=== PATIENT | male | born 1950 | race Caucasian/White ===

== ENCOUNTER 2017-09-09 11:34 | Inpatient (IN) | payer MEDICARE, BC ==
[~2017-09-09] VITALS: Ht 167.6 cm; Wt 106.6 kg
[~2017-09-09 11:34] MED LIST: AMITRIPTYLINE150 MG PO; DULCOLAX5 MG PO; LASIX20 MG PO; METOPROLOL TART25 MG PO; NEURONTIN 400400 MG PO; NORCO 10/325 TA1 TA1 PO; PHENERGAN25 M1 PO; PREDNISONE10 MG PO; PROTONIX40 MG PO; STOOL SOFTENER240 MG PO; SYNTHROID25 MCG PO; TEMAZEPAM30 MG PO; TENORMIN50 MG PO; VICODIN 5/500 T1 TAB PO; ZESTRIL10 MG PO; [UNRECOGNIZED DRUG - OTHER]
[2017-09-09 12:33] LABS: BASOPHILS 0.1 % (0-2); EOSINOPHILS 0.3 % (0-7); HEMATOCRIT 50.6 % (42.0-54.0); HEMOGLOBIN 16.6 g/dL (13.5-17.5); IMMATURE GRANULOCYTES 0.5 % (0-5); LYMPHOCYTES 19.5 % (15-50); MCH 33.1 pg (26.0-34.0); MCHC 32.8 g/dL (31.0-37.0); MEAN PLATELET VOLUME 10.4 fL (7.4-10.4); NEUTROPHILS 70.6 % (40-80); PLATELET COUNT 169 10x3/uL (130-400); RBC 5.01 10x6/uL (4.20-6.10); RDW 13.9 % (11.5-14.5); WBC 11.7 10x3/uL (4.8-10.8)
[2017-09-09 12:48] LABS: ALBUMIN 3.1 g/dL (3.4-5.0); ALKALINE PHOSPHATASE 136 U/L (46-116); ALT (SGPT) 52 U/L (10-68); CALC OSMOLALITY 276 mosm/kg (275-300); CALCIUM 8.8 mg/dL (8.5-10.1); CARBON DIOXIDE 32.3 mmol/L (21.0-32.0); CHLORIDE - SERUM 100 mmol/L (98-107); CREATININE - SERUM 1.2 mg/dL (0.6-1.3); GLUCOSE 97 mg/dL (74-106); POTASSIUM - SERUM 4.8 mmol/L (3.5-5.1); PROTEIN - SERUM 6.9 g/dL (6.4-8.2); SODIUM 138 mmol/L (136-145); UREA NITROGEN 15 mg/dL (7-18); eGFR NON AFRICAN AMERICAN 64 mL/min (90-120)
[2017-09-09 12:57] LABS: CREATINE KINASE 150 UL (21-232); MAGNESIUM - SERUM 2.1 mg/dL (1.8-2.4); PRO BNP 144 pg/mL (0-125); TROPONIN-I < 0.017 ng/mL (0.000-0.060)
[2017-09-09] MEDS ORDERED: XANAX1 MG PO (18:08)
--- NOTE | 2017-09-09 18:37 | NUR ---
PT REC'D TO ROOM VIA WC. AAOX4. NO COMPLAINTS OF PAIN. NO HEMOPTYSIS. RESP EVEN AND UNLABORED. LUNG SOUNDS CLEAR AND EQUAL BILAT. TACHYCARDIC AT 112. CURRENT PT 159/108. WILL CALL DR. GRIMM FOR ORDERS. BOWEL SOUNDS ACTIVE X4 QAUDS. BRUISES AND SCRATCHES NOTED TO BILAT ARM. PT STATES IT IS FROM HIS PUPPY. PIV TO L AC FREE OF REDNESS AND SWELLING. FRESH WATER AND SANDWICH PROVIDED. AT BEDSIDE. BED LOW, CALL LIGHT IN REACH, DENIES NEEDS. CPOC.
--- NOTE | 2017-09-09 19:05 | NUR ---
DR. THORNTON PAGED REGARDING HTN
[2017-09-09 20:00] VITALS: BP 108/49
[2017-09-10] VITALS (7 sets, daily range): BP systolic 104–128; BP diastolic 49–88; Ht 167.6 cm; Wt 106.6 kg
--- NOTE | 2017-09-10 08:00 | NUR ---
REC'D IN BED AWAKE AND ALERT. RESP EVEN AND UNLABORED WITH NO DISTRESS NOTED. CAN EXPRESS NEEDS AND WANTS. ASSESSMENT COMPLETED. FAMILY AT BEDSIDE. C/L IN REACH.
--- NOTE | 2017-09-10 09:00 | NUR ---
PT WAS NOT GIVEN ANY PO MEDICATION D/T BEING NPO FOR PROCEDURE
--- NOTE | 2017-09-10 14:20 | NUR ---
PT RESTING WITH EYES SHUT, EASILY AROUSED. NO NEEDS VOICED AT THIS TIME, FAMILY AT BEDSIDE. BED IN LOWEST POSITION, SIDE RAILS UP X 2, CALL LIGHT WITHIN REACH.
--- NOTE | 2017-09-10 15:53 | NUR ---
Patient Name: LUIS MARCUS Admission Status: ER Accout number: [id number] Admission Date: 09-09-2017 : 1950 Admission Diagnosis: Attending: YOGI GRIMM Current LOS: 1 Anticipated DC Date: Planned Disposition: Home Primary Insurance: MEDICARE A & B Discharge Planning Comments: CM met with patient to assess discharge planning needs. Patient lives independently with his and that is where he plans to return too. He denies any DME or HH services at this time and does not think that he will need any at discharge. He stated that his home is safe to return too, he has 3 stairs to enter in his home. CM will continue to follow and assist with discharge planning needs. PCP: Rosalio [facility] on [facility] [phone] Organic Extractions Technician: Sara Fox * Is the patient Alert and Oriented? Yes 0 * How many steps to enter\exit or inside your home? 0 0 * PCP Rosalio 0 * [facility] [address] 0 * Preadmission Environment Home with Family 0 * ADLs Independent 0 * Equipment None 0 * List name and contact numbers for known caregivers / representatives who currently or will assist patient after discharge: [employer] () [phone] 0 * Community resources currently utilized None 0 * Additional services required to return to the preadmission environment? No 0 * Can the patient safely return to the preadmission environment? Yes 0 * Has this patient been hospitalized within the prior 30 days at any hospital? No 0 Grand Total: 0
[2017-09-10 19:23] LABS: BASOPHILS 0.2 % (0-2); EOSINOPHILS 0.2 % (0-7); HEMATOCRIT 56.8 % (42.0-54.0); HEMOGLOBIN 18.4 g/dL (13.5-17.5); IMMATURE GRANULOCYTES 0.4 % (0-5); LYMPHOCYTES 15.3 % (15-50); MCH 32.5 pg (26.0-34.0); MCHC 32.4 g/dL (31.0-37.0); MCV 100.4 fL (80.0-100.0); MEAN PLATELET VOLUME 9.6 fL (7.4-10.4); MONOCYTES 10.8 % (2-11); NEUTROPHILS 73.1 % (40-80); PLATELET COUNT 134 10x3/uL (130-400); RBC 5.66 10x6/uL (4.20-6.10); RDW 14.1 % (11.5-14.5); WBC 12.9 10x3/uL (4.8-10.8)
[2017-09-10 19:34] LABS: APTT 20.4 SECONDS (22.8-39.4); INR 0.97 (0.85-1.17); PROTIME 12.5 SECONDS (11.6-15.0)
[2017-09-11 04:00] VITALS: BP 148/84
--- NOTE | 2017-09-11 07:15 | NUR ---
REPORT RECEIVED FROM OPERATIONS LIAISON NURSE. CALL LIGHT IN REACH.
--- NOTE | 2017-09-11 07:58 | HP ---
PATIENT: LUIS MARCUS MEDICAL RECORD: [id number] ACCOUNT: [id number] LOCATION:D.MS [facility] : [birth year] ADMISSION DATE: 09/09/17 HISTORY AND PHYSICAL EXAMINATION CHIEF COMPLAINT: Coughing up blood. HISTORY OF PRESENT ILLNESS: This is a 67-year-old long time smoker, who just quit about 3 weeks ago. He states he was feeling good and he has really felt pretty well for the last several days. He and his were lying down watching TV last night when he felt some gurgling in his chest. He had a cough and he coughed up some bright red blood. He denied any chest pain, shortness of breath, or any other problems. He and his both just had some eye surgery and did not feel comfortable driving at night, so he got up on the day of admission and came to the hospital where his lab work all looked pretty well, pretty good, and his plain chest x-ray did not show any significant problems; however, he then had a CAT scan of his chest which showed a left hilar mass with some vascular and bronchial invasion. He is admitted for further evaluation at this time. PAST MEDICAL AND SURGICAL HISTORY: He has a history of hypertension, chronic back pain, and he has had multiple back surgeries. He has had a cholecystectomy. ALLERGIES: SULFA AND ZOFRAN. HOME MEDICATIONS: Gabapentin 400 mg 1 p.o. t.i.d., prednisone 10 mg one half twice a day, Xanax 1 mg twice a day as needed for anxiety, Restoril 30 mg at bedtime, Drewsey 10/325 one q.4 hours p.r.n. pain, metoprolol 25 mg 3 times a day, and domperidone 10 mg 1 pill twice a day. He gets this from [employer] HABITS: Smoked for over 40 years and states he just quit about 3 weeks ago. No alcohol or drug use. SOCIAL HISTORY: He has been disabled due to his back problems for many years. He is . FAMILY HISTORY: Father at 63 of malignant melanoma. Mother at 76 of lung cancer, she was a long time smoker. Sister alive with diabetes. REVIEW OF SYSTEMS: GENERAL: He denies any major weight changes, if anytime he has gained weight because he has been on steroids for many months due to pains. HEENT: No particular sinus or allergy problems. RESPIRATORY: Long history of smoking, but no known diagnosis of COPD or emphysema. CARDIAC: He has hypertension. No history of coronary artery disease. GASTROINTESTINAL: He has had his gallbladder taken out. He has had colonoscopies by Dr. iLttle in the past. MUSCULOSKELETAL: He has had chronic back pain after multiple back surgeries. NEUROLOGIC: No migraines. No seizures. PSYCHIATRIC: He has had depression and anxiety. PHYSICAL EXAMINATION: VITAL SIGNS: Temperature 99.7, pulse 84, respirations 18, blood pressure HISTORY AND PHYSICAL [id number] LUIS MARCUS 108/49, and O2 sat 96%. GENERAL: He does not appear in acute distress at this time. HEENT: Unremarkable. NECK: Supple. No JVD or bruit. HEART: Regular rate and rhythm. LUNGS: Fairly clear. No wheezes or rales. ABDOMEN: Soft. EXTREMITIES: No edema. BACK: He has chronic lumbar pain from multiple surgeries. LABORATORY DATA: CBC with a white count of 11,700, hemoglobin 16.6, hematocrit 50.6, MCV is 101. Basic metabolic panel is all normal. Liver enzymes are all okay except his alkaline phosphatase is a little high at 136. Cardiac enzymes were negative. ProBNP is 144. Chest x-ray was done showing mild interstitial pulmonary edema, no mass is seen. CT of the chest was done with contrast for the hemoptysis and there was 4.4 x 3.8 x 4.4 cm mass in the left pulmonary hilum with vascular and bronchial invasion concerning for neoplasm. ASSESSMENT: 1. Hemoptysis. 2. Left upper lobe lung mass. 3. Long history of smoking. PLAN: He is admitted and pulmonary has consulted for further evaluation of his problems. Other tests and procedures as warranted. TRANSINT:[id number] Voice Confirmation ID: [id number] DOCUMENT ID: [id number] YOGI GRIMM MD at 0758 CC: [id number] DICTATION DATE: 09/10/17823 AUTOMOBILE SERVICE STATION MECHANIC: 09/10/17 1027 ADM IN [place] [id number] [place] [id number]
[2017-09-11 08:10] VITALS: BP 140/73
--- NOTE | 2017-09-11 09:07 | NUR ---
ASSESSMENT COMPLETED. NORCO AND PHENERGAN WITH AM MEDS. CALL LIGHT IN REACH. WILL CONTINUE WITH PLAN OF CARE.
--- NOTE | 2017-09-11 10:00 | NUR ---
STATES PAIN IS DOWN TO A 3.
--- NOTE | 2017-09-11 12:39 | NUR ---
XANAX, NORCO AND PHENERGAN PER PATIENT REQUEST. FAMILY IN ROOM. CALL LIGHT IN REACH.
[2017-09-11 12:53] VITALS: BP 113/69
--- NOTE | 2017-09-11 13:30 | NUR ---
MORPHINE IV PREOP.
--- NOTE | 2017-09-11 13:40 | NUR ---
TO SPECIALS VIA B ED.
--- NOTE | 2017-09-11 14:52 | NUR ---
BACK IN ROOM AT THIS TIME. CALL LIGHT IN REACH.
[2017-09-11 15:50] VITALS: BP 119/78
--- NOTE | 2017-09-11 16:20 | NUR ---
FAMILY IN ROOM. NO NEEDS VOICED AT THIS TIME.
--- NOTE | 2017-09-11 17:04 | NUR ---
GABAPENTIN, BYSTOLIC, NORCO, XANAX, AND PHENERGAN IM
--- NOTE | 2017-09-11 18:30 | NUR ---
NO CHANGES IN INITIAL ASSESSMENT. CALL LIGHT IN REACH. WILL CONTINUE WITH PLAN OF CARE.
[2017-09-11 20:00] VITALS: BP 110/68
[2017-09-12] VITALS: BP 111/70
[2017-09-12 04:00] VITALS: BP 130/79
[2017-09-12 07:22] LABS: IMMUNOGLOBULIN E 35 IU/mL (0-100)
--- NOTE | 2017-09-12 07:58 | NUR ---
PT AOX4 RESP EVEN AND NONLABORED PT DENIES NEEDS AT THIS TIME IV TO LEFT AC PATENT AND INTACT AT THIS TIME SRX2 BED AT LOWEST SETTING WILL CONTINUE TO MONITOR
[2017-09-12 08:45] VITALS: BP 122/75
[2017-09-12 13:33] VITALS: BP 151/48
[2017-09-12 16:45] VITALS: BP 100/71
[2017-09-12 20:00] VITALS: BP 113/75
[2017-09-12 20:07] LABS: AFB SPECIMEN PROCESSING Concentration (())
[2017-09-13 04:00] VITALS: BP 121/79
--- NOTE | 2017-09-13 07:30 | NUR ---
AWAKE AND ALERT. ORIENTED X3. NO C/O AT THIS TIME. AT BEDSIDE. LUNGS ARE CLEAR BUT DIMINISHED ON LEFT SIDE. DENIES PRODUCTIVE COUGH. SKIN IS INTACT WITHOUT REDNESS. SL TO LEFT AC PATENT WITHOUT REDNESS AT INSERTION SITE.
[2017-09-13] MEDS ORDERED: LEVAQUIN500 MG PO (08:46)
[2017-09-13] MEDS ORDERED: BYSTOLIC5 MG PO (09:01)
--- NOTE | 2017-09-13 09:30 | NUR ---
DISCHARGED TO HOME WITH FAMILY AMBULATORY. DISCHARGE INSTRUCTIONS GIVEN BOTH VERBALLY AND WRITTEN. ALL QUESTIONS ANSWERED. PATIENT AND VERBALIZED UNDERSTANDING OF SAME. NEEDED PRESCRIPTIONS CALLED TO MELINDA GAYTAN PER PATIENT CHOICE. SL TO LEFT AC D/C WITH CATHETER INTACT. ALL BELONGINGS WITH PATIENT.
--- NOTE | 2017-09-15 12:15 | EC ---
PATIENT:LUIS MARCUS DATE OF SERVICE: 09/09/17 SEX: M MEDICAL RECORD: [id number] DATE OF : [birth year] LOCATION:D.MS [facility] AGE OF PATIENT: 67 ADMISSION DATE: 09/09/17 REFERRING PHYSICIAN: INTERPRETING PHYSICIAN: DEBORAH SOLORZANO MD ECHOCARDIOGRAM REPORT ECHO CHARGES 4 ECHO COMPLETE CLINICAL DIAGNOSIS: CHF HX OF HTN ECHOCARDIOGRAPHIC MEASUREMENTS (adult normal given) AC root (d.<3.7cm) 3.3 cm LV Septum d (<1.2 cm> 1.1 cm Valve Excursion 2.1 cm LV Septum (systole) 1.5 cm Left Atria (s.<4.0cm> 3.6 cm LVPW d(<1.2cm) 1.4 cm RV (d.<2.3cm) 3.5 cm LVPW (sytole) 1.5 cm LV diastole(<5.6CM) 3.9 cm MV E-F(>70mm/sec) cm LV systole 2.7 cm LVOT Diameter 1.9 cm MV exc.(>10mm) 1.3 cm Est.ejection fraction (50-75%) % Pericardial Effusion N DOPPLER: LVIT cm/sec A 102 cm/sec E 37.0 cm/sec LA cm/sec RVSP mmHg LVOT 84 cm/sec AOP1/2T 7 m/s Asc. Ao 103 cm/sec RVOT cm/sec RA cm/sec PA 115 cm/sec AV Gradient Peak 4.27 mmHg AV Mean 2.33 mmHg AV Area 2.4 cm MV Gradient Peak 2.83 mmHg MV Mean 1.48 mmHg MV Area cm COMMENTS: It Service Technician: Red GALLEGO Wirer Passenger Car: 1 Dr. Solorzano TAPE# PACS DATE OF SERVICE: 09/10/2017 Echocardiogram FINDINGS: 1. Left ventricular chamber size is within normal limits. Left ventricular systolic function is mildly depressed. Overall ejection fraction in the 40% range. 2. Left atrium is within normal limits at 3.6 cm. Right atrium and right ventricular chamber sizes are mildly dilated. ECHOCARDIOGRAM REPORT [id number] LUIS MARCUS 3. Valvular structures have normal structure and motion. 4. Doppler interrogation reveals no significant valvular insufficiency or stenosis. 5. No evidence of pericardial effusion or left ventricular thrombus. TRANSINT:[id number] Voice Confirmation ID: [id number] DOCUMENT ID: [id number] DEBORAH SOLORZANO MD at 1215 CC: [id number] DICTATION DATE: 09/10/17 1252 SHOOK MACHINE OPERATOR: 09/10/17 1302 DIS IN 09/13/17 [place] [id number] [place] [id number]
--- NOTE | 2017-09-15 12:15 | CN ---
PATIENT NAME:LUIS MARCUS MEDICAL RECORD: [id number] : 54 LOCATION:D.MS [facility] ADMIT DATE: 09/09/17 ACCOUNT: [id number] CONSULTING PHYSICIAN: DEBORAH CASE MD REFERRING PHYSICIAN: YOGI GRIMM MD DATE OF CONSULTATION: 09/11/2017 ADMITTING DIAGNOSES: 1. Cardiomyopathy, ejection fraction of 40%. 2. Chronic obstructive pulmonary disease. 3. Lung mass. 4. Pneumonia. 5. Smoking history. HISTORY OF PRESENT ILLNESS: This is a gentleman who presents with shortness of breath, found to have a lung mass compatible with lung CA. He as well has a pneumonia, he has been treated for this. He had an echocardiogram, his ejection fraction is in the 40% range. He has not had any chest pain or chest discomfort. Chest x-ray is not compatible with congestive heart failure. He is on metoprolol 25 mg t.i.d. as an outpatient. PHYSICAL EXAMINATION: GENERAL APPEARANCE: Well-nourished, well-developed, appears stated age. Level of distress, comfortable. PSYCHIATRIC: Mental status, alert, normal affect. Orientation, oriented to time, place and person. EYES: Lids and conjunctiva, noninjected. No discharge, no pallor. ENT: Lips, teeth, gums, normal dentition. Oropharynx, no cyanosis, no pallor. NECK: Carotid arteries, bilateral normal upstroke, no bruits, no thrills. JUGULAR VEINS: No jugular venous pressure or distention. CERVICAL LYMPH NODES: Nontender, nonenlarged. THYROID: Not enlarged. Nontender. No nodules. LUNGS: Respiratory effort, unlabored. CHEST: Normal curvature. No thoracic deformity. No chest wall tenderness. Percussion, resonant. Auscultation, clear. No wheezes, no rales, no rhonchi. CARDIOVASCULAR: Precordial exam, nondisplaced. No heaves or pericardial thrills. Rate and rhythm, regular. Heart sounds, normal S1, normal S2. No S3, no gallop, no rub. Systolic murmur, not heard. Diastolic murmur, not heard. EXTREMITIES: No cyanosis, no edema. Peripheral pulses, full and equal in all extremities, except as noted. No bruits appreciated. ABDOMEN: Soft, nondistended. Normal aorta. No bruit. Nontender. No masses. Liver, nontender, no hepatomegaly. Spleen, nontender, no splenomegaly. MUSCULOSKELETAL: No joint tenderness. No joint swelling. No erythema. NEUROLOGICAL: Normal gait, normal strength, normal tone. SKIN: Warm and dry. OVERALL IMPRESSION: Cardiomyopathy, mild. No congestive heart failure with this. He would be better served with Bystolic, especially with his significant chronic obstructive pulmonary disease. He is still tachycardic on the metoprolol, would favor Bystolic 5 mg b.i.d. This should do a better job with heart rate control as well as blood pressure control and treatment with beta-vince for the mild cardiomyopathy. Really no other workup or treatment is necessary at this time, only center medical management and treatment from a pulmonary standpoint. CONSULT REPORT [id number] LUIS MARCUS TRANSINT:[id number] Voice Confirmation ID: [id number] DOCUMENT ID: [id number] DEBORAH CASE MD at 1215 CC: [id number] DICTATION DATE: 09/11/17 1404 MATERIAL MOVER: 09/11/17 1540 DIS IN 09/13/17 [facility] [address] [place] [address]
[2017-09-16 11:15] LABS: FUNGUS STAIN Final report (())
[2017-09-21 10:11] LABS: FUNGUS CULTURE RESULT 1 Candida albicans (()); FUNGUS MYCOLOGY CULTURE Final report (())
[2017-10-30 11:18] LABS: ACID FAST CULTURE Negative (()); ACID FAST SMEAR Negative (())
== END 2017-09-13 09:30 | disposition home or self-care (01) | DRG 181 ==
LOC: D.ER 11:34 → D.MS 17:09
PROVIDERS: Emergency Medicine; Internal Medicine Pulmonary Disease; ADMIT Family Medicine
PROC: 0BBB8ZX Excision of Left Lower Lobe Bronchus, Via Natural or Artificial Opening Endoscopic, Diagnostic (ICD-10-PCS; 2017-09-11)
PROC: 0B998ZZ Drainage of Lingula Bronchus, Via Natural or Artificial Opening Endoscopic (ICD-10-PCS; 2017-09-11)
PROC: 0BB98ZX Excision of Lingula Bronchus, Via Natural or Artificial Opening Endoscopic, Diagnostic (ICD-10-PCS; principal; 2017-09-11 11:00)
DX: C34.31 Malignant neoplasm of lower lobe, right bronchus or lung (principal); I50.22 Chronic systolic (congestive) heart failure; R91.8 Other nonspecific abnormal finding of lung field; I11.0 Hypertensive heart disease with heart failure; G89.29 Other chronic pain; Z77.090 Contact with and (suspected) exposure to asbestos; Z87.891 Personal history of nicotine dependence

== ENCOUNTER → 2017-10-12 08:28 | Outpatient (CLI) | payer MEDICARE, BC ==
[2017-09-10 11:59] VITALS: BMI 37.9
[~2017-10-12 08:28] MED LIST changes: +BYSTOLIC5 MG PO; +HYDROCODONE-APA1 TAB PO; +LEVAQUIN500 MG PO; +XANAX1 MG PO; +[UNRECOGNIZED DRUG - OTHER]
== END | disposition home or self-care (01) ==
LOC: D.RT 08:28
DX: C34.32 Malignant neoplasm of lower lobe, left bronchus or lung (principal)

== ENCOUNTER 2017-11-06 07:34 | Day surgery (SDC) | payer MEDICARE, BC ==
[~2017-11-06] VITALS: Ht 165.1 cm; Wt 110.7 kg
--- NOTE | ~2017-11-06 | OP ---
PATIENT NAME: LUIS MARCUS MEDICAL RECORD: [id number] :54 LOCATION:D.OPS ADMISSION DATE: SURGEON: MARCUS BROUSSARD MD DATE OF OPERATION: 11/06/2017 PREOPERATIVE DIAGNOSES: 1. Lung cancer. 2. Hypertension. 3. Chronic back pain with chronic neuropathy. 4. Tobacco dependent syndrome. 5. Chronic obstructive pulmonary disease. POSTOPERATIVE DIAGNOSES: 1. Lung cancer. 2. Hypertension. 3. Chronic back pain with chronic neuropathy. 4. Tobacco dependent syndrome. 5. Chronic obstructive pulmonary disease. PROCEDURE: Left subclavian vein port placement. SURGEON: Marcus Broussard MD OPERATIVE PROCEDURE: The patient's left chest was prepped and draped in sterile fashion. A needle was used to cannulate the left subclavian vein and a guidewire was advanced with ease. Fluoro was used to note that the wire was in good position in the venous system. A skin incision was made on the left superior lateral chest and a subcutaneous pouch was made over the pectoral fascia. The catheter was tunneled between this pouch and the wire exit site. The port was then sutured to the pectoral fascia using interrupted 2-0 Prolenes times 2. The catheter was cut with a beveled tip at 24 cm. The dilator trocar device was placed over the wire and the wire and dilator were removed. The catheter tip was advanced through the trocar and the trocar was removed. The catheter tip was noted to be in good position in the superior vena cava. The catheter aspirated nonpulsatile dark blood and flushed easily with heparinized saline. The subcutaneous tissues were reapproximated with interrupted 3-0 Vicryl and the skin was closed with running subcutaneous 5-0 Monocryl. COMPLICATIONS: None. CONDITION: Stable. ANESTHESIA: TIVA and local. BLOOD LOSS: Minimal. TRANSINT:[id number] Voice Confirmation ID: [id number] DOCUMENT ID: [id number] OPERATIVE REPORT [id number] LUIS MARCUS MARCUS BROUSSARD MD CC: ROXANNA CONDE [id number] DICTATION DATE: 11/06/17 1026 PROGRAM MANAGEMENT MANAGER: 11/06/17 1123 [facility] [address] [place] [address]
[~2017-11-06 07:34] MED LIST changes: -HYDROCODONE-APA1 TAB PO; -[UNRECOGNIZED DRUG - OTHER]
[2017-11-06 08:08] LABS: BASOPHILS 0.1 % (0-2); EOSINOPHILS 0.2 % (0-7); HEMATOCRIT 52.4 % (42.0-54.0); IMMATURE GRANULOCYTES 0.3 % (0-5); LYMPHOCYTES 19.1 % (15-50); MCH 33.8 pg (26.0-34.0); MCHC 32.4 g/dL (31.0-37.0); MCV 104.2 fL (80.0-100.0); MEAN PLATELET VOLUME 9.3 fL (7.4-10.4); NEUTROPHILS 75.3 % (40-80); PLATELET COUNT 152 10x3/uL (130-400); RBC 5.03 10x6/uL (4.20-6.10); RDW 14.3 % (11.5-14.5); WBC 12.7 10x3/uL (4.8-10.8)
[2017-11-06 08:23] LABS: APTT 21.2 SECONDS (22.8-39.4); INR 0.94 (0.85-1.17); PROTIME 12.1 SECONDS (11.6-15.0)
[2017-11-06] MEDS ORDERED: [UNRECOGNIZED DRUG - OTHER] (08:28)
[2017-11-06 08:40] VITALS: Ht 165.1 cm; Wt 110.7 kg
[2017-11-06] MEDS ORDERED: HYDROCODONE-APA1 TAB PO (10:21)
== END 2017-11-06 11:45 | disposition home or self-care (01) ==
LOC: D.OPS 07:34 → D.PAN 10:15 → D.OPS 10:15
PROVIDERS: Anesthesiology
DX: C34.90 Malignant neoplasm of unspecified part of unspecified bronchus or lung (principal); J44.9 Chronic obstructive pulmonary disease, unspecified; F17.200 Nicotine dependence, unspecified, uncomplicated; I10 Essential (primary) hypertension; G89.29 Other chronic pain; M54.9 Dorsalgia, unspecified; G62.89 Other specified polyneuropathies; Z01.812 Encounter for preprocedural laboratory examination

== ENCOUNTER 2018-06-13 12:54 | Emergency (ER) | payer MEDICARE, BC ==
[~2018-06-13] VITALS: Ht 165.1 cm; Wt 107.3 kg
[~2018-06-13 12:54] MED LIST changes: +HYDROCODONE-APA1 TAB PO; +[UNRECOGNIZED DRUG - OTHER]
[2018-06-13 12:59] VITALS: Ht 165.1 cm; Wt 107.3 kg
[2018-06-13] MEDS ORDERED: LOPRESSOR25 MG PO (13:01)
[2018-06-13 13:42] LABS: BASOPHILS 0.2 % (0-2); EOSINOPHILS 0.4 % (0-7); HEMATOCRIT 43.8 % (42.0-54.0); HEMOGLOBIN 14.2 g/dL (13.5-17.5); IMMATURE GRANULOCYTES 0.3 % (0-5); LYMPHOCYTES 20.2 % (15-50); MCH 32.9 pg (26.0-34.0); MCHC 32.4 g/dL (31.0-37.0); MCV 101.6 fL (80.0-100.0); MEAN PLATELET VOLUME 9.5 fL (7.4-10.4); MONOCYTES 5.4 % (2-11); NEUTROPHILS 73.5 % (40-80); PLATELET COUNT 134 10x3/uL (130-400); RBC 4.31 10x6/uL (4.20-6.10); RDW 15.1 % (11.5-14.5); WBC 9.6 10x3/uL (4.8-10.8)
[2018-06-13 13:53] LABS: INR 0.93 (0.85-1.17); PROTIME 12.1 SECONDS (11.6-15.0)
[2018-06-13 14:00] LABS: ALBUMIN 3.2 g/dL (3.4-5.0); ANION GAP 12.5 mmol/L (8-16); BILIRUBIN - TOTAL 0.51 mg/dL (0.2-1.3); CALCIUM 8.5 mg/dL (8.5-10.1); CARBON DIOXIDE 29.1 mmol/L (21.0-32.0); CREATININE - SERUM 1.1 mg/dL (0.6-1.3); POTASSIUM - SERUM 4.6 mmol/L (3.5-5.1); PROTEIN - SERUM 6.9 g/dL (6.4-8.2)
[2018-06-13 14:17] LABS: APPEARANCE CLEAR (CLEAR); BILIRUBIN NEGATIVE (NEGATIVE); COLOR YELLOW (YELLOW); GLUCOSE 50 mg/dL (NEGATIVE); KETONE NEGATIVE (NEGATIVE); NITRITE NEGATIVE (NEGATIVE); PROTEIN NEGATIVE (NEGATIVE); SPECIFIC GRAVITY 1.025 (1.005-1.020); UROBILINOGEN NORMAL (NORMAL)
[2018-06-13 14:48] VITALS: BP 139/82
== END 2018-06-13 14:50 | disposition home or self-care (01) ==
LOC: D.ER 12:54
PROVIDERS: Family Medicine
DX: R55 Syncope and collapse (principal); I10 Essential (primary) hypertension

== ENCOUNTER 2018-09-24 07:10 | Outpatient (CLI) | payer MEDICARE, BC ==
[~2018-09-24] VITALS: Ht 167.6 cm; Wt 104.5 kg
--- NOTE | ~2018-09-24 | HEMODYNAMI ---
PATIENT:LUIS MARCUS MEDICAL RECORD: [id number] : 54 LOCATION:D.CAT ADMISSION DATE: 09/24/18 Generatedon:09/24/20189:48 Patient name: LUIS MARCUS Patient #: [id number] SSN: : 1950 Date of study: 09/24/2018 Page: Of Hemodynamic Procedure Report Patient Data Patient Demographics Procedure consent was obtained First Name: LUIS Gender: Male Last Name: ANGELINE : 1950 Middle Initial: CESAR Age: 68 year(s) Patient #: [id number] Race: Unknown Additional ID: [id number] Contact details Address: [address] [place] [address] State: [place] City: [place] Zip code: [address] Admission Admission Data Admission Date: 09/24/2018 Admission Time: 7:10 Admit Source: Other Procedure Procedure Types Cath Procedure Diagnostic Procedure LHC LHC w/Coronaries FFR/IVUS Intra-Coronary IVUS Initial PCI Procedure Coronary Stent Coronary Stent Initial Procedure Description Procedure Date Procedure Date: 09/24/2018 Procedure Start Time: 9:18 Procedure End Time: 9:43 Procedure Staff Name Function Rangel Solorzano MD Performing Physician Ankit Velazquez RT Monitor Emely Frost RN Nurse Vanita Naik RT Scrub Procedure Data Cath Procedure Fluoroscopy Diagnostic fluoroscopy Total fluoroscopy Time: 9.7 time: 9.7 min min Diagnostic fluoroscopy Total fluoroscopy dose: dose: 1640 mGy 1640 mGy Contrast Material Contrast Material Type Amount (ml) Isovue 300 124 Entry Location Entry Primary Successful Side Size Upsize Upsize Entry Closure Succes sful Closure Location (Fr) 1 (Fr) 2 (Fr) Remarks Device Remarks Femoral Right 5 Fr 6 Fr Exoseal artery Short Diagnostic catheters Device Type Used For End Catheter Placement MULTIPACK Pigtail 5 Fr LV Angiography catheter MULTIPACK JL 4.0 5Fr Left Coronary catheter Angiography MULTIPACK 3DRC 5Fr Right Coronary catheter Angiography DIAGNOSTIC AR2 MOD 5 Fr Right Coronary catheter ([id number]) Angiography Procedure Complications No complications Procedure Medications Medication Administration Route Dosage Oxygen etCO2 Nasal cannula 2 l/min Lidocaine 2% added to field 20 Heparin Flush Bag added to field 2 bags (1000units/500ml NS) 0.9% NaCl I.V. 100 ml/hr Versed I.V. 1 mg Fentanyl I.V. 50 mcg Versed I.V. 1 mg Fentanyl I.V. 50 mcg Versed I.V. 1 mg Fentanyl I.V. 50 mcg Heparin Bolus I.V. 4000 units Hemodynamics Rest Pre Cath Intra NCS Post Cath Vital Signs Time Heart Resp SPO2 etCO2 NIBP (mmHg) Rhythm Pain Sedation Rate (ipm) (%) (mmHg) Status Level (bpm) 8:51:00 71 14 95 3.7 156/91(121) NSR 0 (11) 10(A) , No pain 8:55:16 73 11 98 42.5 154/95(128) NSR 0 (11) 10(A) , No pain 8:59:32 71 13 97 41.8 147/93(128) NSR 0 (11) 10(A) , No pain 9:03:46 74 14 98 43.3 151/92(112) NSR 0 (11) 10(A) , No pain 9:08:00 76 12 96 35 159/90(132) NSR 0 (11) 10(A) , No pain 9:12:14 72 15 96 34.3 151/98(122) NSR 0 (11) 10(A) , No pain 9:16:32 75 16 96 32.8 150/88(107) NSR 0 (11) 10(A) , No pain 9:20:52 70 16 95 34.3 130/79(108) NSR 0 (11) 9(A) , No pain 9:25:41 83 13 96 35 149/90(118) NSR 0 (11) 9(A) , No pain 9:29:53 66 15 95 36.5 145/98(116) NSR 0 (11) 9(A) , No pain 9:34:07 83 15 97 35.8 154/88(119) NSR 0 (11) 9(A) , No pain 9:38:19 83 14 97 30.6 131/90(112) NSR 0 (11) 10(A) , No pain 9:42:24 84 17 97 38.8 145/102(121) NSR 0 (11) 10(A) , No pain Medications Time Medication Route Dose Verified Delivered Reason Notes Effectiveness by by 8:53:58 Oxygen etCO2 2 Rangel Han used for Nasal l/min Jeanine Frost RN procedure cannula 8:54:04 Lidocaine 2% added 20ml Rangel Whitfieldie used for to vial Jeanine Frost RN procedure field 8:54:12 Heparin Flush added 2 Rangel Buffie used for Bag to bags Jeanine Frost RN procedure (1000units/500ml field NS) 8:54:20 0.9% NaCl I.V. 100 Rangel Whitfieldie Per physician ml/hr Jeanine Frost RN 9:12:51 Versed I.V. 1 mg Rangel Han for sedation Jeanine Frost RN 9:12:57 Fentanyl I.V. 50 Rangel Han for sedation mcg Jeanine Frost RN 9:18:48 Versed I.V. 1 mg Rangel Han for sedation Jeanine Frost RN 9:18:51 Fentanyl I.V. 50 Rangel Han for sedation mcg Jeanine Frost RN 9:27:22 Versed I.V. 1 mg Rangel Han for sedation Jeanine Frost RN 9:27:26 Fentanyl I.V. 50 Rangel Han for sedation mcg Jeanine Frost RN 9:34:37 Heparin Bolus I.V. 4000 Rangel Whitfieldie for verifi ed units Jeanine Frost RN anticoagulation with dr solorzano Procedure Log Time Note 8:35:28 Admit Source: Other 8:35:54 Diagnostic Cath status Elective 8:44:39 Emely Frost RN sent for patient. Start room use. 8:44:41 Time tracking: Regular hours (M-F 7:00 - 5:00) 8:44:45 Plan of Care:Hemodynamics will remain stable., Cardiac rhythm will remain stable., Comfort level will be maintained., Respiratory function will remain adequate., Patient/ family verbilizes understanding of procedure., Procedure tolerated without complication., Recovers from procedure without complications.. 8:44:51 Patient received from Pre/Post Procedure Room to [facility] 2 Alert and oriented. Tansferred to table in Supine position. 8:44:52 Warm blankets applied, and sky hugger turned on for patient comfort. 8:44:53 Correct patient and procedure confirmed by team. 8:44:54 Signed procedure consent form obtained from patient. 8:44:55 ECG and BP/O2 sat monitors applied to patient. 8:49:56 Vital chart was started 8:50:02 Full Disclosure recording started 8:50:09 H&P Date Dictated: 09/24/2018 Within 30 days and on chart., H&P Addendum completed by physician on day of procedure. (MUST COMPLETE FOR ALL OUTPATIENTS). 8:50:11 Pre-procedure instructions explained to patient. 8:50:11 Pre-op teaching completed and patient verbalized understanding. 8:50:12 Family in waiting room. 8:50:13 Patient NPO since Midnight. 8:50:15 Is the patient allergic to Iodine/contrast media? No. 8:50:16 Was the patient premedicated? No 8:50:18 Is patient on blood thinner?Yes 8:50:43 ACC The patient was administered the following blood thiners within the last 24 hours: ACCPlavix 8:50:45 Patient diabetic? No. 8:50:47 Previous problem with sedation/anesthesia? No ? 8:50:49 Snore? Yes 8:50:50 Sleep apnea? Yes 8:50:51 Deviated septum? No 8:50:51 Opens mouth fully? Yes 8:50:52 Sticks out tongue? Yes 8:51:05 Airway obstruction? Yes history of lung cancer 8:51:08 Dentures? No ? 8:51:12 Pre procedure: left dorsailis pedis pulse 2+ Normal; easily identifiable; not easily obliterated 8:51:14 Pre procedure: right dorsailis pedis pulse 2+ Normal; easily identifiable; not easily obliterated 8:51:16 Patient pain scale 0/10 ?. 8:51:25 IV patent on arrival in left antecubital with 0.9% NaCl at O. 8:51:27 Lab results completed and on chart. 8:51:32 Right groin area was prepped with chlora-prep and draped in sterile fashion 8:51:33 Alarms reviewed by R. N. 8:51:33 Sharps counted by scrub and verified by R.N. 8:53:58 Oxygen 2 l/min etCO2 Nasal cannula was administered by Emely Frost RN; used for procedure; 8:54:04 Lidocaine 2% 20ml vial added to field was administered by Emely Frost RN; used for procedure; 8:54:12 Heparin Flush Bag (1000units/500ml NS) 2 bags added to field was administered by Emely Frost RN; used for procedure; 8:54:20 0.9% NaCl 100 ml/hr I.V. was administered by Emely Frost RN; Per physician; 9::28 Physician arrived 9:: --------ALL STOP TIME OUT------ 9:: Final Timeout: patient, procedure, and site verified with staff and physician. All members of the team are in agreement. 9:12:31 Right groin site verified by team. 9:12:34 Physical assessment completed. ASA score P 2 - A patient with mild systemic disease as per Rangel Solorzano MD. 9:12:37 Sedation plan: IV Moderate Sedation Medication:Versed, Fentanyl 9:12:51 Versed 1 mg I.V. was administered by Emely Frost RN; for sedation; 9:12:57 Fentanyl 50 mcg I.V. was administered by Emely Frost RN; for sedation; 9:13:40 Zero performed for pressure channel P1 9:14:15 Use device set Femoral Dx 9:14:16 ACIST Syringe (62602) opened to sterile field. 9:14:17 Bag Decanter (2002) opened to sterile field. 9:14:18 Medline Cath Pack ([id number]) opened to sterile field. 9:14:18 DIAGNOSTIC WIRE .035 260cm J wire (942004) opened to sterile field. 9:14:20 ACIST Hand Control (32433) opened to sterile field. 9:14:20 ACIST Manifold (50355) opened to sterile field. 9:14:21 DIAGNOSTIC Multipack 5Fr catheter set (CH2986) opened to sterile field. 9:14:22 Tegaderm 4 x 4 (1626W) opened to sterile field. 9:14:23 SHEATH 5FR [place] (RPT238) opened to sterile field. 9:18:47 Procedure started. 9:18:48 Versed 1 mg I.V. was administered by Emely Frost RN; for sedation; 9:18:51 Fentanyl 50 mcg I.V. was administered by Emely Frost RN; for sedation; 9:18:58 Local anesthetic to right femoral artery with Lidocaine 2% by Rangel Solorzano MD.INITIAL ACCESS ONLY 9:19:06 A 5 Fr sheath was inserted into the Right Femoral artery 9:20:37 A MULTIPACK Pigtail 5 Fr catheter was advanced over the wire and used for LV Angiography. 9:20:41 LV angiography performed. 9:21:13 EF : 40 % 9::18 LV gram done using TATE 9:21:19 Catheter removed. 9:21:24 A MULTIPACK JL 4.0 5Fr catheter was advanced over the wire and used for Left Coronary Angiography. 9:22:09 LCA angiography performed. 9::53 Catheter removed. 9::58 A MULTIPACK 3DRC 5Fr catheter was advanced over the wire and used for Right Coronary Angiography. 9:24:03 Catheter removed. 9:24:19 A DIAGNOSTIC AR2 MOD 5 Fr catheter ([id number]) was advanced over the wire and used for Right Coronary Angiography. 9:25:10 RCA angiography performed. 9:25:20 Catheter removed. 9:25:53 INFLATOR Merit BasixCompak (KJ8010) opened to sterile field. 9:25:54 [place] IVUS Catheter (82836K) opened to sterile field. 9:25:55 CHOICE PT Extra Support 182cm wire ([id number]) opened to sterile field. 9:25:56 SHEATH 6FR [place] (SBH524) opened to sterile field. 9:25:56 GUIDE 6FR AR 2.0 catheter (RM8PI59) opened to sterile field. 9:26:13 Sheath upsized to a 6 Fr Short. 9::22 6 Fr AR 2 guide catheter was inserted over the wire 9::22 Versed 1 mg I.V. was administered by Emely Frost RN; for sedation; 9:: Fentanyl 50 mcg I.V. was administered by Emely Frost RN; for sedation; 9:27:59 Procedure type changed to Cath procedure, Diagnostic procedure, LHC, LHC w/Coronaries, FFR/IVUS, Intra-Coronary IVUS Initial, PCI procedure, Coronary Stent, Coronary Stent Initial 9:29:09 Catheter removed. unable to cannulate vessel. 9:29:17 GUIDE 6FR AL 2.0 catheter ([id number]) opened to sterile field. 9:29:29 6 Fr AL 2 guide catheter was inserted over the wire 9:32:24 Catheter removed. unable to cannulate vessel. 9:32:44 GUIDE 6FR LCB catheter (LA6LCB) opened to sterile field. 9:32:55 6 Fr LCB guide catheter was inserted over the wire 9:33:53 CPTES wire advanced. 9:33:56 FFR/IVUS 9:33:57 IVUS catheter advanced over wire. 9:33:58 IVUS pass to RCA lesion performed. 9:34:37 Heparin Bolus 4000 units I.V. was administered by Emely Frost RN; for anticoagulation; verified with dr solorzano 9:37:20 IVUS catheter removed over wire. 9:39:05 Place stent Inflation Number: 1 A INTEGRITY RX 3.5 x 30 stent ([id number]) was prepped and advanced across the Prox RCA. The stent was deployed at 11 YAO for 0:28 (min:sec). 9:39:13 EXOSEAL 6Fr (EX600) opened to sterile field. 9:39:22 Stent catheter was removed intact over wire. 9:39:22 Wire removed. 9:39:26 Guide catheter removed. 9:41:10 Sheath removed intact; hemostasis achieved with Exoseal to the Right Femoral artery. 9:41:15 Procedure ended.(Physican Out) 9:41:26 Fluoroscopy time 09.70 minutes. 9:41:31 Fluoroscopy dose: 1640 mGy 9:41:31 Flurop Dose total: 1640 9:41:35 Contrast amount:Isovue 300 124ml. 9:41:37 Sharps counted by scrub and verified by R.N. 9:42:14 Insertion/operative site no bleeding no hematoma. 9:42:16 Post-op/insertion site Right Femoral artery dressed using a 4 x 4 and Tegaderm. 9:42:19 Post right femoral artery:stable 9:42:20 Post Procedure Pulses reassessed and unchanged 9:42:24 Post procedure: right dorsailis pedis pulse 2+ Normal; easily identifiable; not easily obliterated. 9:42:27 Post-procedure physical assessment completed. ASA score P 2 - A patient with mild systemic disease as per Rangel Solorzano MD. 9:42:30 Post procedure rhythm: sinus rhythm 9:42:31 Post procedure instruction explained to patient.Patient verbalizes understanding. 9:42:32 Procedure and supply charges have been captured, reviewed, submitted and are correct. 9:43:16 Procedure Complication : No complications 9:43:18 Vital chart was stopped 9:43:18 See physician's report for complete and final results. 9:43:21 Report given to Pre/Post Procedure Room. 9:43:24 Patient transfered to Pre/Post Procedure Room with Stretcher. 9:43:26 Procedure ended. 9:43:26 Full Disclosure recording stopped 9:43:34 ACC-PCI Only Patient was given prescriptions, or instructed by Rangel Solorzano MD to start/continue the following medications upon discharge: Plavix 9:43:35 End room use (Document Last) Intervention Summary Intervention Notes Time ActionType Lesion and Equipment Action# Pressure Duration Attributes Used 9:39:05 Place stent Prox RCA INTEGRITY RX 1 11 00:28 3.5 x 30 stent ([id number]) Device Usage Item Name Manufacture Quantity Catalog Number Hospital Part Current Mini mal Lot# / Charge Number Stock Stock Serial# Code ACIST Acist 1 61568 289842 101465 760965 20 Syringe Medical (42548) Systems Inc Bag Decanter Microtek 1 2001S 985100 07915 001105 5 () Medical Inc. Medline Cath Medline 1 [id number] 052166 26739 591119 5 Pack ([id number]) DIAGNOSTIC St Buddy 1 916446 518645 485886 860448 30 WIRE .035 260cm J wire (323928) ACIST Hand Acist 1 77524 523976 139753 362381 5 Control Medical (78140) Systems Inc ACIST Acist 1 56914 341086 258708 826968 5 Manifold Medical (46509) Systems Inc DIAGNOSTIC Cardinal 1 DD7710 002548 80243 810922 30 MD2U Health 5Fr catheter set (VP1287) Tegaderm 4 x 3M 1 1626W 764499 876311 728550 5 4 (1626W) SHEATH 5FR Terumo 1 KOF544 417342 183390 073933 5 [place] (WNZ600) MULTIPACK Cardinal 1 484018 5 Pigtail 5 Fr Health catheter MULTIPACK JL Cardinal 1 316471 5 4.0 5Fr Health catheter MULTIPACK Cardinal 1 100975 5 3DRC 5Fr Health catheter DIAGNOSTIC Cardinal 1 [id number] 755892 395677 711445 20 AR2 MOD 5 Fr Health catheter (483846W) INFLATOR Merit 1 BA9987 432486 525700 259149 15 [facility] Medical BasixCompak (NI6736) [place] 1 93691F 206553 642990 364165 8 [place]ag[place] IVUS Catheter (08019A) CHOICE PT [place] 1 [id number] 185067 544549 807646 5 Extra Scientific Support 182cm wire ([id number]) SHEATH 6FR Terumo 1 GRL689 875330 711783 731999 40 [place] (UHR046) GUIDE 6FR AR Medtronic 1 GG2OD06 561088 06522 690868 1 2.0 catheter (HK1DR52) GUIDE 6FR AL Medtronic 1 [id number] 611322 69976 023118 1 2.0 catheter (QR0DK37) GUIDE 6FR Medtronic 1 LA6LCB 224871 89390 034217 1 LCB catheter (LA6LCB) INTEGRITY RX Medtronic 1 [id number] 907420 845719 930591 5 [id number] 3.5 x 30 stent ([id number]) EXOSEAL 6Fr Cardinal 1 EX600 382705 052286 812845 10 (EX600) Health Signature Audit [place] Stage Time Signature Unsigned Intra-Procedure 09/24/2018 Ankit Velazquez RT(R) 9:48:35 AM Signatures Monitor : Ankit Velazquez RT Signature : Date : Time : [facility] [address] [place] [address]
[~2018-09-24 07:10] MED LIST changes: +LOPRESSOR25 MG PO
[2018-09-24] MEDS ORDERED: PLAVIX75 MG PO (07:42)
[2018-09-24 07:55] VITALS: BP 158/108; Ht 167.6 cm; Wt 104.5 kg
[2018-09-24 08:02] LABS: BASOPHILS 0.1 % (0-2); HEMATOCRIT 43.1 % (42.0-54.0); IMMATURE GRANULOCYTES 0.2 % (0-5); LYMPHOCYTES 19.5 % (15-50); MCH 33.2 pg (26.0-34.0); MCHC 32.5 g/dL (31.0-37.0); MCV 102.1 fL (80.0-100.0); MEAN PLATELET VOLUME 8.9 fL (7.4-10.4); MONOCYTES 9.3 % (2-11); NEUTROPHILS 69.9 % (40-80); PLATELET COUNT 147 10x3/uL (130-400); RBC 4.22 10x6/uL (4.20-6.10); RDW 14.3 % (11.5-14.5); WBC 9.1 10x3/uL (4.8-10.8)
[2018-09-24 08:15] LABS: ANION GAP 15.3 mmol/L (8-16); CALCIUM 9.2 mg/dL (8.5-10.1); CARBON DIOXIDE 27.8 mmol/L (21.0-32.0); CREATININE - SERUM 1.1 mg/dL (0.6-1.3); POTASSIUM - SERUM 4.1 mmol/L (3.5-5.1)
[2018-09-24] MEDS ORDERED: BAYER CHEWABLE81 MG PO (09:52)
--- NOTE | 2018-09-30 14:56 | OP ---
PATIENT NAME: LUIS MARCUS MEDICAL RECORD: [id number] :54 LOCATION:D.CAT ADMISSION DATE: SURGEON: DEBORAH CASE MD DATE OF OPERATION: 09/24/2018 PROCEDURES: 1. PTCA stent RCA. 2. Intravascular ultrasound RCA. 3. Left heart catheterization. 4. Selective coronary angiography. 5. Left ventriculogram. INDICATION: Angina and coronary artery disease. PROCEDURE IN DEATIL: After informed consent was obtained and after a detailed description of the risks, benefits as well as alternative therapies, the patient elected to proceed with angiogram and angioplasty. The right femoral area was prepped and draped in normal sterile fashion. Right femoral artery was cannulated via modified Seldinger technique with placement of 6-Faroese sheath. All catheters exchanged through this sheath. FINDINGS: The left ventriculogram was performed in standard 30-degree TATE view, reveals global hypokinesis throughout all segments. Overall ejection fraction in the 40% range. SELECTIVE CORONARY ANGIOGRAPHY: 1. Left main is with no significant angiographic disease. 2. Left anterior descending has moderate irregularities, but no flow-limiting stenosis. 3. The left circumflex has moderate irregularities, but no flow-limiting stenosis. 4. Right coronary artery has greater than 75% stenosis in multiple areas throughout the proximal vessel confirmed by intravascular ultrasound. PTCA STENT OF THE RIGHT CORONARY ARTERY: Stenting all the areas of stenosis was a 3.5 x 30 mm Integrity. Result was 0% residual stenosis. OVERALL IMPRESSION: Successful percutaneous transluminal coronary angioplasty stent of the right coronary artery going from 75% initial stenosis to 0% residual. TRANSINT:[id number] Voice Confirmation ID: [id number] DOCUMENT ID: [id number] DEBORAH CASE MD at 1456 CC: [id number] DICTATION DATE: 09/24/18 0945 INSURANCE RISK MANAGER: 09/24/18 1229 [facility] CLI 09/24/18 [place] [id number]
== END 2018-09-24 14:15 ==
LOC: D.CATH 07:10
PROVIDERS: Internal Medicine Interventional Cardiology
DX: I25.119 Atherosclerotic heart disease of native coronary artery with unspecified angina pectoris (principal); Z01.812 Encounter for preprocedural laboratory examination

== ENCOUNTER 2019-06-01 07:25 | Outpatient (CLI) | payer MEDICARE, BC ==
[~2019-06-01] VITALS: Ht 167.6 cm; Wt 103.2 kg
[~2019-06-01 07:25] MED LIST changes: +AUGMENTIN 875-11 TAB PO; +BAYER CHEWABLE81 MG PO; +PLAVIX75 MG PO
[2019-06-01 07:52] LABS: ANION GAP 11.1 mmol/L (8-16); CALCIUM 9.2 mg/dL (8.5-10.1); CARBON DIOXIDE 31.4 mmol/L (21.0-32.0); CREATININE - SERUM 1.2 mg/dL (0.6-1.3); POTASSIUM - SERUM 4.5 mmol/L (3.5-5.1)
[2019-06-01 08:11] VITALS: Ht 167.6 cm; Wt 103.2 kg
[2019-06-01 08:13] LABS: BASOPHILS 0 % (0-2); EOSINOPHILS 0.1 % (0-7); HEMATOCRIT 47.5 % (42.0-54.0); HEMOGLOBIN 15.8 g/dL (13.5-17.5); IMMATURE GRANULOCYTES 0.6 % (0-5); LYMPHOCYTES 8.5 % (15-50); MCH 33.4 pg (26.0-34.0); MCHC 33.3 g/dL (31.0-37.0); MCV 100.4 fL (80.0-100.0); MEAN PLATELET VOLUME 9.9 fL (7.4-10.4); MONOCYTES 6.9 % (2-11); NEUTROPHILS 83.9 % (40-80); PLATELET COUNT 129 10x3/uL (130-400); RBC 4.73 10x6/uL (4.20-6.10); RDW 15.7 % (11.5-14.5); WBC 12.7 10x3/uL (4.8-10.8)
[2019-06-01 08:30] LABS: INR 0.92 (0.85-1.17); PROTIME 11.9 SECONDS (11.6-15.0)
--- NOTE | 2019-06-01 11:41 | NUR ---
1140 PT RECIEVED A REGULAR TRAY
--- NOTE | 2019-06-01 14:04 | NUR ---
1230 IV REMOVED. NO CXR ORDERED. VERIFIED IN RADIOLOGY IF PT NEEDED A CXR. WAITING FOR RETURN CALL. 1235 RADIOLOGY CALLED NO CXR NEEDED 1240 PT DISCHATGED HOME
== END 2019-06-01 13:40 | disposition home or self-care (01) ==
LOC: D.CT 07:25
PROVIDERS: Radiology Diagnostic Radiology; ATTEND Internal Medicine Medical Oncology
DX: C34.32 Malignant neoplasm of lower lobe, left bronchus or lung (principal); C43.4 Malignant melanoma of scalp and neck

== ENCOUNTER → 2019-08-26 10:33 | Outpatient (CLI) | payer MEDICARE, BC ==
[2019-06-01 08:11] VITALS: BMI 36.7
== END | disposition home or self-care (01) ==
LOC: D.CT 10:33 → D.MRI 11:00
PROVIDERS: ATTEND Internal Medicine Medical Oncology
DX: C34.32 Malignant neoplasm of lower lobe, left bronchus or lung (principal); C43.4 Malignant melanoma of scalp and neck; E86.0 Dehydration; R42 Dizziness and giddiness

== ENCOUNTER 2019-09-29 09:35 | Inpatient (IN) | payer MEDICARE, BC ==
[~2019-09-29] VITALS: Ht 167.6 cm; Wt 100.7 kg
[2019-09-29] MEDS ORDERED: PREDNISONE20 MG PO (09:44)
[2019-09-29 10:12] LABS: BASOPHILS 0.1 % (0-2); EOSINOPHILS 0.4 % (0-7); HEMOGLOBIN 11.3 g/dL (13.5-17.5); IMMATURE GRANULOCYTES 0.5 % (0-5); LYMPHOCYTES 13.9 % (15-50); MCHC 31.4 g/dL (31.0-37.0); MCV 111.5 fL (80.0-100.0); MEAN PLATELET VOLUME 10.7 fL (7.4-10.4); MONOCYTES 7.2 % (2-11); NEUTROPHILS 77.9 % (40-80); PLATELET COUNT 113 10x3/uL (130-400); RBC 3.23 10x6/uL (4.20-6.10); WBC 10.9 10x3/uL (4.8-10.8)
[2019-09-29 10:22] LABS: ANION GAP 12.7 mmol/L (8-16); CALCIUM 9.2 mg/dL (8.5-10.1); CARBON DIOXIDE 28.5 mmol/L (21.0-32.0); CREATININE - SERUM 1.1 mg/dL (0.6-1.3); POTASSIUM - SERUM 4.2 mmol/L (3.5-5.1)
[2019-09-29 10:36] LABS: ALBUMIN 2.9 g/dL (3.4-5.0); BILIRUBIN - TOTAL 0.49 mg/dL (0.2-1.3); PROTEIN - SERUM 6.6 g/dL (6.4-8.2)
[2019-09-29 11:06] LABS: APPEARANCE CLEAR (CLEAR); BILIRUBIN NEGATIVE (NEGATIVE); COLOR STRAW (YELLOW); GLUCOSE NEGATIVE (NEGATIVE); KETONE NEGATIVE (NEGATIVE); NITRITE NEGATIVE (NEGATIVE); PROTEIN NEGATIVE (NEGATIVE); UROBILINOGEN NORMAL (NORMAL)
--- NOTE | 2019-09-29 13:37 | MORECARE ---
CASE MANAGEMENT DISCHARGE SUMMARY PATIENT: LUIS RAM UNIT: [id number] ADM DATE: 09/29/19 AGE: 69 : 52 SEX: M ROOM/BED: D.2236 AUTHOR: ANNIE,DOC PHYSICIAN: REFERRING PHYSICIAN: YOGI GRIMM MD DATE OF SERVICE: 09/29/19 Discharge Plan Patient Name: LUIS RAM Facility: [facility]:[place] : 1950 Planned Disposition: Home Anticipated Discharge Date: 10/01/19 Discharge Date: Expected LOS: 2 Initial Reviewer: [email or web address] Initial Review Date: 09/29/2019 Generated: 09/29/19 2:37 pm DCP- Discharge Planning Updated by [email or web address]: Autumn Andrade on 09/29/19 12:[address] DC PLAN: Return home with . ANTICIPATED DC NEEDS: denied known dc needs. CM met with patient and his to complete initial dc planning assessment. CM educated patient and his on the CM role and verbal consent given by patient to complete assessment. CM verified patient's address, phone number, and emergency contact phone numbers. Patient's completed assessment. Patient lives at home with his . She reports she assists him with bathing and dressing. She reports she has to make him take a bath because he doesn't want to. At discharge patient plans to return home and feels this is a safe discharge. CM discussed availability of home health, rehab services, and medical equipment. Patient's denied known discharge needs at this time. Transportation provider at discharge will be his . CM will continue to follow and will assist as needed with dc plans/needs. Autumn Andrade RN, [facility] DCPIA - Discharge Planning Initial Assessment Updated by [email or web address]: Autumn Andrade on 09/29/19 1:30 pm * Is the patient Alert and Oriented? Yes * How many steps to enter\exit or inside your home? three * PCP Dr. Grimm * [facility] [address] * Preadmission Environment Home with Family * ADLs Partial Dependent * Partial ADLs (Assistance needed) Bathing Dressing * Equipment BIPAP Nebulizer Oxygen Rolling Walker * List name and contact numbers for known caregivers / representatives who currently or will assist patient after discharge: Kusum Ram - spouse - [phone] * Verbal permission to speak to the caregivers and representatives has been obtained from the patient. Yes * Community resources currently utilized None * Additional services required to return to the preadmission environment? No * Can the patient safely return to the preadmission environment? Yes * Has this patient been hospitalized within the prior 30 days at any hospital? No Patient Name: LUIS RAM Page [id number] at 1337 All edits/amendments must be made on the electronic document DICTATION DATE: 09/29/196 SUPERVISOR MAPPING: MARIYA 09/29/19 1336 RPT#: [id number] DC DATE: STATUS: ADM IN [facility] [address] [place] [address] END OF REPORT
--- NOTE | 2019-09-29 14:51 | NUR ---
PT RECIEVED FROM ER. NO SIGNS OF DISTRESS. IV TO RIGHT AC PATENT NO REDNESS OR TENDERNESS. DENIES ANY FURTHER NEED AT THIS TIME. CALL LIGHT IN REACH. BED LOW POSITION. FAMILY AT BEDSIDE
[2019-09-29] MEDS ORDERED: PREDNISONE5 MG PO (15:24)
[2019-09-29 15:51] VITALS: BP 119/82; BMI 35.9
--- NOTE | 2019-09-29 19:30 | NUR ---
PATIENT LYING DOWN IN BED. SHAWN COMPLAINS OF NAUSEA AND PAIN. TOLD PATIENT I WILL BRING PAIN MEDICINE SOON ITS DUE. BED RAILS X2. CALL LIGHT AND BEDSIDE TABLE WITHIN REACH.
--- NOTE | 2019-09-29 23:12 | HP ---
PATIENT: LUIS MARCUS MEDICAL RECORD: [id number] ACCOUNT: [id number] LOCATION:[facility] [id number] : 54 ADMISSION DATE: 09/29/19 PCP: YOGI GRIMM MD HISTORY AND PHYSICAL EXAMINATION CHIEF COMPLAINT: Abdominal pain, nausea, vomiting, and shortness of breath. HISTORY OF PRESENT ILLNESS: This is a 69-year-old white male with a history of nonsmall cell lung cancer followed by Dr. Simmons, currently in remission. He has had a long history of chronic back pain as well as chronic abdominal pain but has gotten worse over the last 2 weeks and even worse in the last day or two. He can walk, but a few feet without being short of breath. He has had no diarrhea. He does have a history of coronary artery disease as well, presented to the ER with above complaints. He was afebrile. Chest x-ray showed small left pleural effusion, linear scarring or fibrosis in the left mid lung. CT of abdomen and pelvis showed nothing acute in the abdominal pelvic area. There was consolidation in the left lower lobe of lung suggesting pneumonia. He was admitted. PAST MEDICAL HISTORY: Hypertension, chronic low back pain after multiple back surgeries, chronic abdominal pain has been worked up in the past by Dr. Little. There were no further recommendations. No surgeries recommended. He has a history of nonsmall cell lung cancer, followed by Dr. Simmons History of coronary artery disease, medically managed. PAST SURGICAL HISTORY: Cholecystectomy and multiple back surgeries. ALLERGIES: BACTRIM. HE WAS PLACED ON LEVAQUIN RECENTLY AND WAS COMPLAINING OF TENDINITIS. HOME MEDICATIONS: Metoprolol tartrate 25 mg t.i.d., Xanax 1 mg t.i.d., hydrocodone 10/325 one every 4 hours p.r.n. chronic back pain, gabapentin 400 mg t.i.d., and prednisone 5 mg 3 a day. SOCIAL HISTORY: , on disability due to his back. FAMILY HISTORY: Father at 63. He had melanoma and hypertension. Mother at 76. She had lung cancer and was a long time smoker. HABITS: He smoked for over 40 years, quit in 2018. REVIEW OF SYSTEMS: GENERAL: No major weight changes. HEENT: No particular sinus or allergy problems. RESPIRATORY: Has history of COPD, has not seen a automotive glass specialist in months if not years. He has had the lung cancer, treated. CARDIAC: History of less than 50% blockage. GASTROINTESTINAL: Chronic abdominal pain. Worked by Dr. Peralta multiple times. Nothing more to offer. MUSCULOSKELETAL: Chronic low back pain. NEUROLOGIC: No migraines. No seizures. PSYCHIATRIC: Has anxiety. PHYSICAL EXAMINATION: VITAL SIGNS: Temperature 97.5, pulse 100, respirations 20, blood pressure HISTORY AND PHYSICAL [id number] LUIS MARCUS 150/87, O2 sat currently at 95% on 2 liters. Generally, he appears to be in pain. HEENT: He has cushingoid features. Generalized swelling face. NECK: Supple. No JVD or bruit. HEART: Regular rate and rhythm. LUNGS: Diffuse wheeze bilaterally. ABDOMEN: Chronic generalized tenderness. No guarding, no rebound, no mass. RECTAL: Not done. EXTREMITIES: Trace edema. LABORATORY DATA: Urinalysis is normal. CBC with a white count of 10,900, hemoglobin 11.3, hematocrit 36.0, and platelets number 113,000. Basic metabolic panel is all fairly stable. LFTs were okay. ProBNP 397. Chest x-ray: Small left pleural effusion. Linear scarring versus fibrosis. Left mid lung CT of abdomen and pelvis shows no acute abdominal or pelvic problems. There is consolidation in left lower lobe consistent with pneumonia. ASSESSMENT: 1. Pneumonia. 2. Chronic abdominal pain, worsening. 3. Chronic low back pain. 4. History of non-small cell lung cancer, currently in remission. 5. Chronic obstructive pulmonary disease. PLAN: We will admit, start IV antibiotics. We will ask pulmonary to see him. We will start methylprednisolone breathing treatments, blood cultures, pain control. Other tests or procedures as warranted. TRANSINT:[id number] Voice Confirmation ID: [id number] DOCUMENT ID: [id number] YOGI GRIMM MD at 2312 CC: [id number] DICTATION DATE: 09/29/19 160 BLOCK SAW OPERATOR: 09/29/191935 ADM IN [place] [id number] [place] [address]
[2019-09-30 00:30] VITALS: BP 111/52
[2019-09-30 05:00] VITALS: BP 108/47
[2019-09-30 06:17] LABS: BASOPHILS 0.1 % (0-2); EOSINOPHILS 0 % (0-7); HEMATOCRIT 37.9 % (42.0-54.0); HEMOGLOBIN 11.5 g/dL (13.5-17.5); IMMATURE GRANULOCYTES 0.3 % (0-5); LYMPHOCYTES 12.5 % (15-50); MCH 34.3 pg (26.0-34.0); MCHC 30.3 g/dL (31.0-37.0); MCV 113.1 fL (80.0-100.0); MEAN PLATELET VOLUME 10.6 fL (7.4-10.4); MONOCYTES 3.6 % (2-11); NEUTROPHILS 83.5 % (40-80); PLATELET COUNT 124 10x3/uL (130-400); RBC 3.35 10x6/uL (4.20-6.10); WBC 10.4 10x3/uL (4.8-10.8)
[2019-09-30 06:43] LABS: ANION GAP 15.8 mmol/L (8-16); CALCIUM 8.7 mg/dL (8.5-10.1); CARBON DIOXIDE 27.7 mmol/L (21.0-32.0); CREATININE - SERUM 1.1 mg/dL (0.6-1.3); MAGNESIUM - SERUM 2.2 mg/dL (1.8-2.4); PHOSPHOROUS 4.2 mg/dL (2.5-4.9); POTASSIUM - SERUM 4.5 mmol/L (3.5-5.1)
--- NOTE | 2019-09-30 08:08 | NUR ---
PT RECEIVED SITTING IN CHAIR EATING BREAKFAST. COMPLAINS OF PAIN TO LEFT ABDOMEN/CHEST AREA. MEDICATED. IN ROOM. OXYGEN IN USE.
[2019-09-30 08:51] VITALS: BP 106/70
[2019-09-30 13:04] VITALS: Ht 167.6 cm; Wt 100.7 kg
[2019-09-30 17:02] VITALS: BP 142/76
[2019-09-30 21:00] VITALS: BP 143/70
[2019-10-01 01:17] VITALS: BP 166/91
[2019-10-01 06:18] LABS: BASOPHILS 0 % (0-2); EOSINOPHILS 0 % (0-7); HEMATOCRIT 35.9 % (42.0-54.0); HEMOGLOBIN 11.1 g/dL (13.5-17.5); IMMATURE GRANULOCYTES 0.4 % (0-5); LYMPHOCYTES 6.4 % (15-50); MCH 34.7 pg (26.0-34.0); MCHC 30.9 g/dL (31.0-37.0); MCV 112.2 fL (80.0-100.0); MEAN PLATELET VOLUME 9.9 fL (7.4-10.4); MONOCYTES 5.9 % (2-11); NEUTROPHILS 87.3 % (40-80); PLATELET COUNT 127 10x3/uL (130-400); RDW 17.1 % (11.5-14.5); WBC 12.1 10x3/uL (4.8-10.8)
[2019-10-01 06:49] LABS: ANION GAP 15.8 mmol/L (8-16); CARBON DIOXIDE 26.3 mmol/L (21.0-32.0); CREATININE - SERUM 1.1 mg/dL (0.6-1.3); POTASSIUM - SERUM 4.1 mmol/L (3.5-5.1)
--- NOTE | 2019-10-01 08:33 | NUR ---
TAKEN TO GASTRIC SCAN PER W/C, NPO
[2019-10-01 09:01] VITALS: BP 156/82
--- NOTE | 2019-10-01 10:14 | NUR ---
RETURNED TO UNIT PER W/C FROM GASTRIC SCAN
[2019-10-01 12:51] VITALS: BP 111/58
[2019-10-01 17:01] VITALS: BP 155/82
[2019-10-02 00:29] VITALS: BP 138/80
[2019-10-02 05:30] VITALS: BP 133/74
[2019-10-02 06:39] LABS: BASOPHILS 0 % (0-2); EOSINOPHILS 0 % (0-7); HEMATOCRIT 32.7 % (42.0-54.0); HEMOGLOBIN 9.9 g/dL (13.5-17.5); IMMATURE GRANULOCYTES 0.5 % (0-5); LYMPHOCYTES 6.8 % (15-50); MCHC 30.3 g/dL (31.0-37.0); MCV 112.4 fL (80.0-100.0); MEAN PLATELET VOLUME 10.1 fL (7.4-10.4); MONOCYTES 7.6 % (2-11); NEUTROPHILS 85.1 % (40-80); PLATELET COUNT 107 10x3/uL (130-400); RBC 2.91 10x6/uL (4.20-6.10); RDW 16.9 % (11.5-14.5)
[2019-10-02 06:40] LABS: WBC 7.6 10x3/uL (4.8-10.8)
[2019-10-02 06:49] LABS: CALC OSMOLALITY 290 mosm/kg (275-300); CALCIUM 8.2 mg/dL (8.5-10.1); CARBON DIOXIDE 26.6 mmol/L (21.0-32.0); CHLORIDE - SERUM 106 mmol/L (98-107); CREATININE - SERUM 0.9 mg/dL (0.6-1.3); GLUCOSE 203 mg/dL (74-106); SODIUM 142 mmol/L (136-145); UREA NITROGEN 17 mg/dL (7-18); eGFR NON AFRICAN AMERICAN 89 mL/min (90-120)
[2019-10-02 09:06] VITALS: BP 142/77
--- NOTE | 2019-10-02 10:03 | NUR ---
PT IS UP AND ACTIVE THIS MORNING MOVING FROM BED TO CHAIR AND BACK TO BED, STATES PAIN IN ABD AND ON SIDES ABOUT A 7 AND CAUSES HIM TO GET SICK TO HIS STOMACH. PT IS NOT WEARING O2 AND STATES HE ONLY USES IT AT NIGHT. SPOUSE AT BEDSIDE, NO NEEDS VOICED, CL IN REACH CONTINUE WITH PLAN OF CARE
--- NOTE | 2019-10-02 11:59 | NUR ---
PT REQUESTED PAIN MEDICATION, BROUGHT IN AND OPENED NORCO PT REFUSED AND STATED HE WANTS DILAUDID WASTED NORCO AND PULLED PT PRN IV PAIN MEDICATION. NO OTHER NEEDS VOICED
[2019-10-02 12:20] VITALS: BP 115/78
--- NOTE | 2019-10-02 13:17 | NUR ---
I have reviewed this patient and I concur with the Shift Assessment completed by the Licensed Practical Nurse today this shift.
--- NOTE | 2019-10-02 15:09 | NUR ---
PT IV IN RT WRIST WENT BAD, STUCK PT ONCE WITH NO LUCK HAD RN DMITRIY TRY TO GAIN IV ACCESS UNSUCESSFUL WILL TRY ER OR ICU
--- NOTE | 2019-10-02 15:33 | NUR ---
CALLED AND SPOKE TO JANUARY IN ER STATED SHE WILL PASS MESSAGE FOR MARISELA TO COME AND ATTEMPT IV FOR PT. CONTINUE WITH PLAN OF CARE
[2019-10-02 16:12] VITALS: BP 101/55
[2019-10-02 19:30] VITALS: BP 147/88
[2019-10-03 05:31] VITALS: BP 150/85
[2019-10-03 06:51] LABS: BASOPHILS 0.1 % (0-2); EOSINOPHILS 0 % (0-7); HEMATOCRIT 34.3 % (42.0-54.0); HEMOGLOBIN 10.2 g/dL (13.5-17.5); IMMATURE GRANULOCYTES 0.7 % (0-5); LYMPHOCYTES 6.3 % (15-50); MCH 34.3 pg (26.0-34.0); MCHC 29.7 g/dL (31.0-37.0); MEAN PLATELET VOLUME 8.9 fL (7.4-10.4); MONOCYTES 8.9 % (2-11); PLATELET COUNT 91 10x3/uL (130-400); RBC 2.97 10x6/uL (4.20-6.10); RDW 17.1 % (11.5-14.5); WBC 7.5 10x3/uL (4.8-10.8)
[2019-10-03 07:02] LABS: MCV 115.5 fL (80.0-100.0)
[2019-10-03 07:07] LABS: CALC OSMOLALITY 294 mosm/kg (275-300); CHLORIDE - SERUM 108 mmol/L (98-107); GLUCOSE 212 mg/dL (74-106); POTASSIUM - SERUM 4.1 mmol/L (3.5-5.1); SODIUM 144 mmol/L (136-145); UREA NITROGEN 18 mg/dL (7-18); eGFR NON AFRICAN AMERICAN 79 mL/min (90-120)
[2019-10-03 08:14] VITALS: BP 138/95
--- NOTE | 2019-10-03 12:20 | NUR ---
PT REQUESTED PAIN MEDICATION STATES PAIN IS AN 8 OUT OF 10, PT SPOUSE STATED SHE IS CONCERNED THAT PT IS SWOLLEN IN LEGS AND FEET AND HAS REQUESTED LASIX, ENCOURAGED PT ELEVATE LEGS AND ADVISED I WILL CALL DR GRIMM AND SEE IF WE CAN GET AN ORDER, SPOKE TO DR GRIMM ADN RELAYED MESSAGE FROM MRS. MARCUS. PER DR GRIMM, HE WILL BE BY TO SEE PT TODAY. CONTINUE WITH PLAN OF CARE
[2019-10-03 12:51] VITALS: BP 153/96
--- NOTE | 2019-10-03 14:30 | NUR ---
Nutrition follow-up: Diet: Regular PO intake poor at this time Attempted gastric emptying scan; pt unable to complete Still with abdominal pain increased LE edema; started on Lasix today Will continue to provide food choices and honor food preferences. Will offer nutritional supplements. RDN following.
[2019-10-03 16:35] VITALS: BP 165/94
[2019-10-03 19:30] VITALS: BP 156/82
--- NOTE | 2019-10-03 23:40 | NUR ---
REC'D SITTING ON SIDE OF BED REQUESTING PAIN PILL.GIVEN REQUESTED 30MIN LATER STATES READY FOR PAIN MED EXPLAINED TOOK PO PAIN MED.STATES WANTED IV PAIN MED EXPLAINED HAVE TO WAIT COUPLE HOURS.CAN'T GIVE BACK TO BACK. STATES CAN'T HELP IT IF YOU GAVE ME THE WRONG PAIN MED EXPLAINED YOU HAD THE RIGHT ORAL PAIN MED THAT WAS ORDERED BY YOUR DR.WILL CONTINUE TO MONITOR FOR ANY CHGES AND FOLLOW CURRENT PLAN OF CARE.
[2019-10-04 00:30] VITALS: BP 141/86
[2019-10-04 05:25] VITALS: BP 138/80
[2019-10-04 05:29] LABS: BASOPHILS 0.1 % (0-2); EOSINOPHILS 0 % (0-7); HEMATOCRIT 37.9 % (42.0-54.0); HEMOGLOBIN 11.4 g/dL (13.5-17.5); IMMATURE GRANULOCYTES 0.9 % (0-5); LYMPHOCYTES 7.4 % (15-50); MCH 34.8 pg (26.0-34.0); MCHC 30.1 g/dL (31.0-37.0); MCV 115.5 fL (80.0-100.0); MEAN PLATELET VOLUME 8.9 fL (7.4-10.4); NEUTROPHILS 83.6 % (40-80); PLATELET COUNT 98 10x3/uL (130-400); RBC 3.28 10x6/uL (4.20-6.10); RDW 16.8 % (11.5-14.5); WBC 8.7 10x3/uL (4.8-10.8)
[2019-10-04 05:32] LABS: CALC OSMOLALITY 293 mosm/kg (275-300); CALCIUM 8.4 mg/dL (8.5-10.1); CHLORIDE - SERUM 105 mmol/L (98-107); GLUCOSE 192 mg/dL (74-106); POTASSIUM - SERUM 3.8 mmol/L (3.5-5.1); SODIUM 144 mmol/L (136-145); UREA NITROGEN 19 mg/dL (7-18); eGFR NON AFRICAN AMERICAN 79 mL/min (90-120)
[2019-10-04 05:37] LABS: CARBON DIOXIDE 32.6 mmol/L (21.0-32.0)
--- NOTE | 2019-10-04 07:16 | NUR ---
I have reviewed this patient and I concur with the Shift Assessment completed by the Licensed Practical Nurse today this shift.
[2019-10-04 08:43] VITALS: BP 147/89
[2019-10-04 09:37] LABS: PLATELET ESTIMATE DECREASED; POLYCHROMASIA OCC
[2019-10-04 09:38] LABS: ANISOCYTOSIS OCC; ROULEAUX OCC
[2019-10-04 12:43] VITALS: BP 156/87
[2019-10-04] MEDS ORDERED: OMNICEF300 MG PO (13:14)
[2019-10-04] MEDS ORDERED: LASIX20 MG PO (13:16)
--- NOTE | 2019-10-04 13:58 | MORECARE ---
CASE MANAGEMENT DISCHARGE SUMMARY PATIENT: LUIS RAM UNIT: [id number] ADM DATE: 09/29/19 AGE: 69 : 54 SEX: M ROOM/BED: D.2236 AUTHOR: ALLYSON VALENCIA PHYSICIAN: REFERRING PHYSICIAN: YOGI GRIMM MD DATE OF SERVICE: 10/04/19 Discharge Plan Patient Name: LUIS RAM Facility: [facility]:[place] : 1950 Planned Disposition: Home Anticipated Discharge Date: 10/01/19 Discharge Date: Expected LOS: 2 Initial Reviewer: [email or web address] Initial Review Date: 09/29/2019 Generated: 10/04/19 2:58 pm Comments DCP- Discharge Planning Updated by [email or web address]: Sara Fox on 10/04/19 12:[address] PATIENT DC HOME WITH IMM SERVED AND EXPLAINED. DENIES ANY NEEDS DCP- Discharge Planning Updated by [email or web address]: Autumn Andrade on 09/29/19 12:[address] DC PLAN: Return home with . ANTICIPATED DC NEEDS: denied known dc needs. CM met with patient and his to complete initial dc planning assessment. CM educated patient and his on the CM role and verbal consent given by patient to complete assessment. CM verified patient's address, phone number, and emergency contact phone numbers. Patient's completed assessment. Patient lives at home with his . She reports she assists him with bathing and dressing. She reports she has to make him take a bath because he doesn't want to. At discharge patient plans to return home and feels this is a safe discharge. CM discussed availability of home health, rehab services, and medical equipment. Patient's denied known discharge needs at this time. Transportation provider at discharge will be his . CM will continue to follow and will assist as needed with dc plans/needs. Autumn Andrade RN, [facility] DCPIA - Discharge Planning Initial Assessment Updated by [email or web address]: Autumn Andrade on 09/29/19 1:30 pm * Is the patient Alert and Oriented? Yes * How many steps to enter\exit or inside your home? three * PCP Dr. Grimm * [facility] [address] * Preadmission Environment Home with Family * ADLs Partial Dependent * Partial ADLs (Assistance needed) Bathing Dressing * Equipment BIPAP Nebulizer Oxygen Rolling Walker * List name and contact numbers for known caregivers / representatives who currently or will assist patient after discharge: Kusum Ram - spouse - [phone] * Verbal permission to speak to the caregivers and representatives has been obtained from the patient. Yes * Community resources currently utilized None * Additional services required to return to the preadmission environment? No * Can the patient safely return to the preadmission environment? Yes * Has this patient been hospitalized within the prior 30 days at any hospital? No Coverage Notice Reviewer: [email or web address] Eliu Fox Notice Issued Date-Time: 10/04/2019 13:50 Notice Type: IM Discharge Notice Notice Delivered To: Patient Relationship to Patient: Relations Liaison Name: Delivery Method: HAND - Hand Delivered Kerri Days: Prior Verbal Notification: Recipient Understood Notice: Yes Recipient Signature: Yes Med Rec Note Co-signed by Attending: Coverage Notice Comment: Last DP export: 09/29/19 12:37 Patient Name: LUIS RAM Page [id number] at 1358 All edits/amendments must be made on the electronic document DICTATION DATE: 10/04/19 1358 PROFESSOR OF GEOLOGY: AMRIYA 10/04/19 1358 RPT#: [id number] DC DATE: STATUS: ADM IN [facility] [address] [place] [address] END OF REPORT
--- NOTE | 2019-10-04 14:56 | NUR ---
ALL DISCHARGE INSTRUCTIONS COVERED WITH PT AND PT FAMILY MEMBER. PT AND PT FAMILY MEMBER DENY FURTHER QUESTIONS/CONCERNS/NEEDS AT THIS TIME. PIV TO RIGHT AC REMOVED WITH CATHETER TIP INTACT. DRESSING APPLIED. ALL DISCHARGE PAPERS SIGNED. PT REQUESTS TO AMBULATE FROM ROOM AND DENIES WHEELCHAIR ASSTANCE. PT AMBULATES OUT OF ROOM WITHOUT DIFFICULTY AND THANKS ME FOR CARE GIVEN THIS SHIFT. ALL SIGNED DISCHARGE PAPERS PLACED IN PT CHART.
--- NOTE | 2019-10-07 16:52 | MORECARE ---
CASE MANAGEMENT DISCHARGE SUMMARY PATIENT: LUIS RAM UNIT: [id number] ADM DATE: 09/29/19 AGE: 69 : 52 SEX: M ROOM/BED: D.2236 AUTHOR: ALLYSON VALENCIA PHYSICIAN: REFERRING PHYSICIAN: YOGI GRIMM MD DATE OF SERVICE: 10/07/19 Discharge Plan Patient Name: LUIS RAM Facility: [facility]:[place] : 1950 Planned Disposition: Home Anticipated Discharge Date: 10/01/19 Discharge Date: 10/04/2019 Expected LOS: 2 Initial Reviewer: [email or web address] Initial Review Date: 09/29/2019 Generated: 10/07/19 5:52 pm Comments DCP- Discharge Planning Updated by [email or web address]: Sara Fox on 10/04/19 12:[address] PATIENT DC HOME WITH IMM SERVED AND EXPLAINED. DENIES ANY NEEDS DCP- Discharge Planning Updated by [email or web address]: Autumn Andrade on 09/29/19 12:[address] DC PLAN: Return home with . ANTICIPATED DC NEEDS: denied known dc needs. CM met with patient and his to complete initial dc planning assessment. CM educated patient and his on the CM role and verbal consent given by patient to complete assessment. CM verified patient's address, phone number, and emergency contact phone numbers. Patient's completed assessment. Patient lives at home with his . She reports she assists him with bathing and dressing. She reports she has to make him take a bath because he doesn't want to. At discharge patient plans to return home and feels this is a safe discharge. CM discussed availability of home health, rehab services, and medical equipment. Patient's denied known discharge needs at this time. Transportation provider at discharge will be his . CM will continue to follow and will assist as needed with dc plans/needs. Autumn Andrade RN, [facility] DCPIA - Discharge Planning Initial Assessment Updated by [email or web address]: Autumn Andrade on 09/29/19 1:30 pm * Is the patient Alert and Oriented? Yes * How many steps to enter\exit or inside your home? three * PCP Dr. Grimm * [facility] on [address] * Preadmission Environment Home with Family * ADLs Partial Dependent * Partial ADLs (Assistance needed) Bathing Dressing * Equipment BIPAP Nebulizer Oxygen Rolling Walker * List name and contact numbers for known caregivers / representatives who currently or will assist patient after discharge: Kusum Ram - spouse - [phone] * Verbal permission to speak to the caregivers and representatives has been obtained from the patient. Yes * Community resources currently utilized None * Additional services required to return to the preadmission environment? No * Can the patient safely return to the preadmission environment? Yes * Has this patient been hospitalized within the prior 30 days at any hospital? No Coverage Notice Reviewer: [email or web address] Eliu Fox Notice Issued Date-Time: 10/04/2019 13:50 Notice Type: IM Discharge Notice Notice Delivered To: Patient Relationship to Patient: Filter Press Tender Head Name: Delivery Method: HAND - Hand Delivered Kerri Days: Prior Verbal Notification: Recipient Understood Notice: Yes Recipient Signature: Yes Med Rec Note Co-signed by Attending: Coverage Notice Comment: Last DP export: 10/04/19 12:58 Patient Name: LUIS RAM Page [id number] at 1652 All edits/amendments must be made on the electronic document DICTATION DATE: 10/07/191651 BONSAI TENDER: MARIYA 10/07/191651 RPT#: [id number] DC DATE:10/04/19 STATUS: DIS IN [facility] [address] [place] [address] END OF REPORT
== END 2019-10-04 14:57 | disposition home or self-care (01) | DRG 193 ==
LOC: D.ER 09:35 → D.MS 12:25
PROVIDERS: Family Medicine; ADMIT Family Medicine; ATTEND Family Medicine
DX: J18.9 Pneumonia, unspecified organism (principal); I50.23 Acute on chronic systolic (congestive) heart failure; J90 Pleural effusion, not elsewhere classified; I25.10 Atherosclerotic heart disease of native coronary artery without angina pectoris; Z85.118 Personal history of other malignant neoplasm of bronchus and lung; J44.9 Chronic obstructive pulmonary disease, unspecified; G89.29 Other chronic pain; M54.5 Low back pain; G47.33 Obstructive sleep apnea (adult) (pediatric); Z79.52 Long term (current) use of systemic steroids; I11.0 Hypertensive heart disease with heart failure

== ENCOUNTER 2020-05-01 09:09 | Outpatient (CLI) | payer MEDICARE, BC ==
[~2020-05-01] VITALS: Ht 167.6 cm; Wt 98.4 kg
[~2020-05-01 09:09] MED LIST changes: +OMNICEF300 MG PO; +PREDNISONE20 MG PO; +PREDNISONE5 MG PO
[2020-05-01 09:39] LABS: HEMATOCRIT 47.9 % (42.0-54.0); HEMOGLOBIN 15.2 g/dL (13.5-17.5); MCH 31.9 pg (26.0-34.0); MCHC 31.7 g/dL (31.0-37.0); MCV 100.4 fL (80.0-100.0); RBC 4.77 10x6/uL (4.20-6.10); RDW 15.3 % (11.5-14.5)
[2020-05-01] MEDS ORDERED: BACTRIM DS TAB1 EAC1 PO (10:10)
[2020-05-01 10:12] VITALS: Ht 167.6 cm; Wt 98.4 kg
--- NOTE | 2020-05-01 14:10 | NUR ---
PIV DC'D WITH TIP INTACT, PATIENT AMBULATING AROUND ROOM WITHOUT UNSTEADINESS OR DIZZINESS, PATIENT DRESSING IN PERSONAL CLOTHING
== END 2020-05-01 14:34 | disposition home or self-care (01) ==
LOC: D.OPS 09:09
PROVIDERS: Anesthesiology; ATTEND Internal Medicine Pulmonary Disease
DX: C34.90 Malignant neoplasm of unspecified part of unspecified bronchus or lung (principal); J44.9 Chronic obstructive pulmonary disease, unspecified; J98.4 Other disorders of lung; J96.11 Chronic respiratory failure with hypoxia; I50.22 Chronic systolic (congestive) heart failure; G47.33 Obstructive sleep apnea (adult) (pediatric); F17.210 Nicotine dependence, cigarettes, uncomplicated; Z79.52 Long term (current) use of systemic steroids

== ENCOUNTER → 2020-05-30 15:15 | Outpatient (CLI) | payer MEDICARE, BC ==
[2020-05-01 10:12] VITALS: BMI 35.1
[~2020-05-30 15:15] MED LIST changes: +BACTRIM DS TAB1 EAC1 PO
[2020-05-30 16:26] LABS: BASOPHILS 0.3 % (0-2); EOSINOPHILS 1.6 % (0-7); HEMOGLOBIN 15.6 g/dL (13.5-17.5); IMMATURE GRANULOCYTES 0.3 % (0-5); LYMPHOCYTES 21.7 % (15-50); MCH 31.8 pg (26.0-34.0); MCHC 32.5 g/dL (31.0-37.0); MEAN PLATELET VOLUME 9.1 fL (7.4-10.4); MONOCYTES 9.5 % (2-11); NEUTROPHILS 66.6 % (40-80); PLATELET COUNT 111 10x3/uL (130-400); RDW 15.1 % (11.5-14.5); WBC 7.5 10x3/uL (4.8-10.8)
[2020-05-30 16:26] LABS: CALC OSMOLALITY 265 mosm/kg (275-300); CALCIUM 9.3 mg/dL (8.5-10.1); CARBON DIOXIDE 31.7 mmol/L (21.0-32.0); CHLORIDE - SERUM 98 mmol/L (98-107); SODIUM 133 mmol/L (136-145); UREA NITROGEN 10 mg/dL (7-18); eGFR NON AFRICAN AMERICAN 79 mL/min (90-120)
[2020-05-30 16:39] LABS: GLUCOSE 121 mg/dL (74-106)
[2020-05-30 18:03] LABS: ERYTHROCYTE SEDIMENTATION RATE 30 mm/hr (0-20)
[2020-05-31 08:13] LABS: ANTICHROMATIN ANTIBODIES <0.2 AI (0.0-0.9); DOUBLE-STRANDED DNA ABS <1 IU/mL (0-9); RNP ANTIBODY <0.2 AI (0.0-0.9); SJOGRENS AB SSA <0.2 AI (0.0-0.9); SJOGRENS AB SSB <0.2 AI (0.0-0.9); SMITH ANTIBODY <0.2 AI (0.0-0.9)
[2020-06-01 11:11] LABS: ANGIOTENSIN CONVERTING ENZYME 72 U/L (14-82)
== END | disposition home or self-care (01) ==
LOC: D.LAB 15:15
PROVIDERS: ATTEND Internal Medicine
DX: H44.111 Panuveitis, right eye (principal)

== ENCOUNTER → 2021-01-28 11:54 | Outpatient (CLI) | payer MEDICARE, BC ==
[2020-08-02 08:59] VITALS: BMI 34.3
[~2021-01-28 11:54] MED LIST changes: +PROTONIX20 MG PO
== END | disposition home or self-care (01) ==
LOC: D.US 11:54
PROVIDERS: ATTEND Family Medicine
DX: R60.0 Localized edema (principal); M79.662 Pain in left lower leg